=== PATIENT | male | born 1995 | race Caucasian/White ===

== ENCOUNTER → 2022-08-17 | Day surgery (SDC) | payer OTHER ==
[2022-08-15 10:06] VITALS: BMI 33.0
[~2022-08-17] MED LIST: LACTATED RINGERS 1,000 ML IV SCH; LIDOCAINE 1% (10MG/ML) FOR IV START INTRADERMA PRN; PROPOFOL 10 MG/ML 20 ML VIAL IV ONE
[2022-08-17 13:45] VITALS: RESP 16; TEMP 97.3
--- NOTE | 2022-08-17 15:05 | P.PCN ---
Date of Procedure: 08/17/22 Procedure(s) Performed: BRIEF HISTORY: Patient is a 26-year-old pleasant white male scheduled for an elective colonoscopy as a part of evaluation of intermittent rectal bleeding and chronic diarrhea for the last 2 years duration. PROCEDURE PERFORMED: Colonoscopy with random biopsy. PREOPERATIVE DIAGNOSIS: Intermittent rectal bleeding and chronic diarrhea of several years.. IV sedation per Anesthesia. PROCEDURE: After informed consent was obtained, the patient, was brought into the endoscopy unit. IV sedation was administered by Anesthesia under continuous monitoring. Digital rectal examination was normal. Initially the Olympus CF-160 flexible video colonoscope was then inserted in the rectum, gradually advanced into the cecum without any difficulty. Careful examination was performed as the scope was gradually being withdrawn. Ileocecal valve and the appendiceal orifice were visualized and appeared normal. Prep was excellent. Terminal ileum was intubated and 20 cm visualized and appeared normal. Mucosa of the cecum, ascending colon, transverse colon, descending colon, sigmoid colon, and rectum appeared normal. Random biopsies were done from ascending and descending colon to rule out microscopic/collagenous colitis Retroflexion was performed in the rectum and no lesions were seen. The patient tolerated the procedure well. IMPRESSION: Normal-appearing colon from rectum to cecum with no evidence of colitis or colorectal neoplasia . RECOMMENDATIONS: Findings of this examination were discussed with the patient as well as his family. He was advised to follow with the biopsy results. He will continue with dicyclomine as needed. He'll be seen in office in 3-4 months.
[2022-08-17 15:23] VITALS: BP 128/56; PULSE 62
== END ==
LOC: ORWHC2ENDO 12:07
PROVIDERS: ATTEND Internal Medicine Gastroenterology
DX: K62.5 Hemorrhage of anus and rectum (principal); K52.9 Noninfective gastroenteritis and colitis, unspecified; Z88.0 Allergy status to penicillin; Z88.2 Allergy status to sulfonamides
CPT/HCPCS: 45380; J2704; 88305